=== PATIENT | female | born 2005 | race African-American/Black ===

== ENCOUNTER 2023-03-08 11:44 | Emergency (ER) | payer OTHER ==
--- NOTE | 2023-03-08 11:57 | EDPHYS ---
Physician Documentation [facility] Name: Dalia Page Age: 18 yrs Sex: Female : 2005 Arrival Date: 03/08/2023 Time: 11:44 Bed IW1 Private MD: ED Physician Serge Gao HPI: 03/08 11:54 This 18 yrs old Black Female presents to ER via Ambulatory with complaints of Toothache.jh7 11:54 The patient presents with pain. The problem is located in the lower right wisdome jh7 tooth. Onset: The symptoms/episode began/occurred 3 day(s) ago. Associated signs and symptoms: Pertinent negatives: chills, dysphagia, fever, inability to eat, nausea, redness in area, vomiting. Last dental visit several years ago. 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 - Social history:: Smoking status: Patient denies any tobacco usage or history of. ROS: 11:54 Constitutional: Negative for fever, chills, and weight loss, Eyes: Negative for injury, jh7 pain, redness, and discharge, Neck: Negative for injury, pain, and swelling, Cardiovascular: Negative for chest pain, palpitations, and edema, Respiratory: Negative for shortness of breath, cough, wheezing, and pleuritic chest pain, Abdomen/GI: Negative for abdominal pain, nausea, vomiting, diarrhea, and constipation, MS/Extremity: Negative for injury and deformity, Skin: Negative for injury, rash, and discoloration, Neuro: Negative for headache, weakness, numbness, tingling, and seizure, 11:54 ENT: Positive for dental pain, Negative for difficulty swallowing, difficulty handling secretions, 11:54 All other systems are negative, Exam: 11:54 Constitutional: This is a well developed, well nourished patient who is awake, alert, jh7 and in no acute distress. Head/Face: Normocephalic, atraumatic. Neck: Trachea midline, no thyromegaly or masses palpated, and no cervical lymphadenopathy. Supple, full range of motion without nuchal rigidity, or vertebral point tenderness. No Meningismus. Cardiovascular: Regular rate and rhythm with a normal S1 and S2. No gallops, murmurs, or rubs. Normal PMI, no JVD. No pulse deficits. Respiratory: Lungs have equal breath sounds bilaterally, clear to auscultation and percussion. No rales, rhonchi or wheezes noted. No increased work of breathing, no retractions or nasal flaring. Skin: Warm, dry with normal turgor. Normal color with no rashes, no lesions, and no evidence of cellulitis. MS/ Extremity: Pulses equal, no cyanosis. Neurovascular intact. Full, normal range of motion. Neuro: Awake and alert, GCS 15, oriented to person, place, time, and situation. Normal gait. 11:54 ENT: Dental exam: Right lower wisdom tooth eruption with no surrounding erythema or swelling. The area is tender to palpation., Vital Signs: 11:53 Pulse 75; Resp 16; Temp 98; Pulse Ox 100% ; Weight 93.89 kg; Height 5 ft. 6 in. ; Pain mb9 8/10; 11:56 BP 126 / 78; mb9 11:53 Body Mass Index 33.41 (93.89 kg, 167.64 cm) - Percentile 96.2 % mb9 11:53 Pain Scale: Adult mb9 MDM: 11:49 Patient medically screened. [facility] 11:54 Differential diagnosis: dental caries, gingivitis, dental abscess. Data reviewed: vital [facility] emergency [facility] signs, nurses notes. I considered the following discharge prescriptions or medication management in the emergency department Medications were administered in the Emergency Department. See MAR. Counseling: I had a detailed discussion with the patient and/or guardian regarding the historical points, exam findings, and any diagnostic results supporting the discharge/admit diagnosis, the need for outpatient follow up, a dentist, to return to the emergency department if symptoms worsen or persist or if there are any questions or concerns that arise at home. Administered Medications: 12:01 Drug: Ketorolac IM 60 mg IM once Route: IM; Site: right deltoid; mb9 12:01 Follow up: Response: No adverse reaction mb9 Disposition: 12:18 Co-signature as Attending Physician, Serge Gao MD I reviewed the patient's care rn provided by the Advanced Practice Provider and agree with the diagnosis and treatment plan. Disposition Summary: 03/08/23 11:56 Discharge Ordered Notes: Location: Home [facility] Problem: new [facility] Symptoms: are unchanged [facility] Condition: Stable [facility] Diagnosis - Odontalgia [facility] Followup: [facility] - With: Private Physician - When: 2 - 3 days - Reason: Recheck today's complaints Discharge Instructions: - Discharge Summary Sheet [facility] - Dental Pain [facility] - Preventive Dental Care, Adult [facility] Forms: - Medication Reconciliation Form [facility] - Thank You Letter [facility] - Antibiotic Education [facility] - Patient Portal Instructions [facility] - Leadership Thank You Letter [facility] Prescriptions: - Augmentin 875-125 mg Oral Tablet - take 1 tablet ORAL route every 12 hours for 10 days; 20 tablet; Refills: 0, [facility] Product Selection Permitted - Naprosyn 500 mg Oral Tablet - take 1 tablet ORAL route 2 times per day take with food; 30 tablet; Refills: 0, [facility] Product Selection Permitted Signatures: Serge Gao MD MD rn Hadash, Jennifer, FNP FABRICATOR FOAM RUBBER [facility] Ary Ortiz RN RN mb9
--- NOTE | 2023-03-08 11:57 | ER ---
Nurse's Notes [facility] Name: Dalia Page Age: 18 yrs Sex: Female : 2005 Arrival Date: 03/08/2023 Time: 11:44 Bed IW1 Private MD: Diagnosis: Odontalgia Presentation: 03/08 11:53 Chief complaint: Patient states: "My wisdom teeth have been bothering me for the past 3 mb9 days. It hurts real bad". Coronavirus screen: At this time, the client does not indicate any symptoms associated with coronavirus-19. Ebola Screen: No symptoms or risks identified at this time. Initial Sepsis Screen: Does the patient meet any 2 criteria? No. Patient's initial sepsis screen is negative. Does the patient have a suspected source of infection? No. Patient's initial sepsis screen is negative. Risk Assessment: Do you want to hurt yourself or someone else? Patient reports no desire to harm self or others. Onset of symptoms was March 08, 2023. 11:53 Method Of Arrival: Ambulatory [facility] 11:53 Acuity: FARHAN 4 mb9 Triage Assessment: 11:55 General: Appears in no apparent distress. Behavior is calm, cooperative. Pain: mb9 Complains of pain in wisdom teeth Pain currently is 8 out of 10 on a pain scale. Quality of pain is described as throbbing, Pain began suddenly, Is continuous. EENT: Oral mucosa is moist. Reports pain in teeth. Neuro: Mortensen Agitation-Sedation Scale (RASS): 0 - Alert and Calm Level of Consciousness is awake, alert, obeys commands, Oriented to person, place, time, situation, Appropriate for age. Cardiovascular: Patient's skin is warm and dry. Respiratory: Airway is patent Respiratory effort is even, unlabored, Respiratory pattern is regular, symmetrical. GI: No signs and/or symptoms were reported involving the gastrointestinal system. : No signs and/or symptoms were reported regarding the genitourinary system. Derm: Skin is pink, warm \\T\\ dry. Musculoskeletal: Range of motion: intact in all extremities. 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 - Social history:: Smoking status: Patient denies any tobacco usage or history of. Screenin:56 [facility] ED Fall Risk Assessment (Adult) History of falling in the last 3 months, mb9 including since admission No falls in past 3 months (0 pts) Confusion or Disorientation No (0 pts) Intoxicated or Sedated No (0 pts) Impaired Gait No (0 pts) Mobility Assist Device Used No (0 pt) Altered Elimination No (0 pt) Score/Fall Risk Level 0 - 2 = Low Risk Oriented to surroundings, Maintained a safe environment, Educated pt \\T\\ family on fall prevention, incl call for assistance when getting out of bed. Abuse screen: Denies threats or abuse. Nutritional screening: No deficits noted. Tuberculosis screening: No symptoms or risk factors identified. Assessment: 11:56 Reassessment: see triage assessment. mb9 Vital Signs: 11:53 Pulse 75; Resp 16; Temp 98; Pulse Ox 100% ; Weight 93.89 kg; Height 5 ft. 6 in. ; Pain mb9 8/10; 11:56 BP 126 / 78; mb9 11:53 Body Mass Index 33.41 (93.89 kg, 167.64 cm) - Percentile 96.2 % mb9 11:53 Pain Scale: Adult mb9 ED Course: 11:47 Patient arrived in ED. mg5 11:49 Marielos Busch FNP is [facility]. jh7 11:49 Serge Gao MD is Attending Physician. 7 11:52 Ary Ortiz, ARTIS is Primary Nurse. mb9 11:54 Triage completed. mb9 11:54 Arm band placed on. mb9 11:56 Adult w/ patient. Client placed on continuous cardiac and pulse oximetry monitoring. mb9 NIBP monitoring applied. 11:56 No provider procedures requiring assistance completed. Patient did not have IV access mb9 during this emergency room visit. Administered Medications: 12:01 Drug: Ketorolac IM 60 mg IM once Route: IM; Site: right deltoid; mb9 12:01 Follow up: Response: No adverse reaction mb9 Medication: 11:56 VIS not applicable for this client. mb9 Outcome: 11:56 Discharge ordered by . jh7 12:01 Discharged to home ambulatory, telly 12:01 Condition: stable 12:01 Discharge instructions given to patient, Instructed on discharge instructions, follow up and referral plans. Demonstrated understanding of instructions, follow-up care, medications, Prescriptions given X 2, 12:02 Patient left the ED. mb9 Signatures: Marielos Busch FNP FNP jh7 Ary Ortiz RN RN mb9 Aditi Gr mg5
[2023-03-08 12:07] VITALS: TEMP 98; O2SAT 100
[2023-03-08 12:08] VITALS: BP 126/78
[2023-03-08] MEDS ORDERED: KETOROLAC 30 MG/ML INJ ONE (12:10)
== END 2023-03-08 12:02 | disposition home or self-care (01) ==
LOC: ER 11:44
DX: K08.89 Other specified disorders of teeth and supporting structures (principal)
CPT/HCPCS: 96372; 99284

== ENCOUNTER 2024-05-30 16:00 | Emergency (ER) | payer SELFPAY ==
[2024-05-30 17:01] LABS: Specific Gravity > 1.030 (1.005-1.030); Transitional Epithelial <5 /HPF (None Seen); Urine Bacteria <20 /HPF (<20); Urine Bilirubin NEGATIVE (Negative); Urine Blood Negative (Negative); Urine Clarity Turbid (Clear); Urine Color Yellow (Yellow); Urine Culture Reflex Order NOT NEEDED; Urine Glucose NEGATIVE (Negative); Urine Ketones TRACE (Negative); Urine Microscopic Reflex YN ORDER UMIC; Urine Mucus 4+ /HPF (None Seen); Urine Nitrite NEGATIVE (Negative); Urine Protein 1+ (Negative); Urine RBC <5 /HPF (None Seen); Urine Urobilinogen 2+ (Normal); Urine WBC <5 /HPF (<5); Urine pH 6.5 (5.0-7.0)
[2024-05-30 17:02] LABS: Specific Gravity > 1.030 (1.005-1.030)
--- NOTE | 2024-05-30 17:38 | RAD REPORT ---
Exam:Forearm Left Clinical history: Left forearm pain Findings: No fracture seen
--- NOTE | 2024-05-30 17:57 | EDPHYS ---
Physician Documentation [facility] Name: Dalia Page Age: 19 yrs Sex: Female : 2005 Arrival Date: 05/30/2024 Time: 16:00 Bed IW1 Private MD: ED Physician Serge Gao HPI: 05/30 20:59 This 19 yrs old Black Female presents to ER via Ambulatory with complaints of Arm kb Problem - bump, Urinary Problem. 20:59 Patient is a 19-year-old female who presents for vaginal discharge and having the urge kb to urinate but does not urinate very much that started about a week ago. Denies dysuria or fever. Also reports a lump to her left forearm that has been there for over a month and she wanted to find out what that was.. Historical: - Allergies: 16:23 No Known Allergies; ko1 - Home Meds: 16:23 None [Active]; ko1 - PMHx: 16:23 None; ko1 - PSHx: 16:23 None; ko1 - Immunization history:: Adult Immunizations up to date. - Infectious Disease History:: Denies. - Social history:: Smoking status: Patient denies any tobacco usage or history of. ROS: 20:57 Constitutional: As per HPI kb Exam: 20:57 Constitutional: This is a well developed, well nourished patient who is awake, alert, kb and in no acute distress. Head/Face: Normocephalic, atraumatic. ENT: Moist Mucous membranes Cardiovascular: Regular rate Respiratory: Respirations even and unlabored. No increased work of breathing. Talking in full sentences Abdomen/GI: Soft, non-tender. No distention Skin: Warm, dry with normal turgor. Normal color. Neuro: Awake and alert, GCS 15, oriented to person, place, time, and situation. 20:57 Musculoskeletal/extremity: Extremities: grossly normal except: noted in the dorsal aspect of left forearm: mass under skin, ROM: intact in all extremities, Circulation is intact in all extremities. Sensation intact. Vital Signs: 16:21 BP 107 / 62; Pulse 84; Resp 16; Temp 97.1; Pulse Ox 100% ; ko1 MDM: 16:07 Medical Screening Exam initiated kb 18:23 ED course: Pt elected to leave from lobby prior to results.. kb 20:58 Differential diagnosis: foreign body, cyst, BV, gonorrhea, chlamydia, UTI, trichomonas, kb yeast infection. Data reviewed: vital signs, nurses notes. 05/30 16:20 Order name: Wet Prep; Complete Time: 17:16 kb 05/30 16:20 Order name: GC (Rylan/Chl) Probe VAGINAL (Do not order if pt is under 13, order Culture kb instead) 05/30 16:20 Order name: Test, Urine; Complete Time: 17:03 kb 05/30 16:20 Order name: Urinalysis w/ reflexes; Complete Time: 17:03 kb 05/30 16:20 Order name: Forearm Left XRAY; Complete Time: 17:45 kb Administered Medications: No medications were administered Disposition Summary: 05/30/24 17:57 Discharge Ordered Notes: Location: Home kb Condition: Stable kb Diagnosis - Bacterial vaginosis kb Followup: kb - With: Emergency Department - When: As needed - Reason: Worsening of condition Followup: kb - With: Private Physician - When: 2 - 3 days - Reason: Recheck today's complaints, Continuance of care, Re-evaluation by your physician Discharge Instructions: - Discharge Summary Sheet kb - Bacterial Vaginosis, [id number] kb Forms: - Medication Reconciliation Form kb - Antibiotic Education kb - Prescription Opioid Use kb - Patient Portal Instructions kb - Leadership Thank You Letter kb Prescriptions: - Cleocin 2 % Vaginal Cream - insert 5 grams VAGINAL route At bedtime for 7 days; 45 gram; Refills: 0, kb Product Selection Permitted Addendum: 06/06/2024 06:58 Co-signature as Attending Physician, Serge Gao MD I reviewed the patient's care r n provided by the Advanced Practice Provider and agree with the diagnosis and treatment plan. Signatures: Dispatcher [employer] Florence Guerra, VIROLOGY TEACHER-C VIROLOGY TEACHER-Serge Rich MD MD rn Oliver, Kathy, RN RN ko1 Corrections: (The following items were deleted from the chart) 05/30 20:58 20:57 Musculoskeletal/extremity: Extremities: grossly normal except: ROM: intact in all kb extremities, kb
--- NOTE | 2024-05-30 17:57 | ER ---
Nurse's Notes [facility] Name: Dalia Page Age: 19 yrs Sex: Female : 2005 Arrival Date: 05/30/2024 Time: 16:00 Bed IW1 Private MD: Diagnosis: Bacterial vaginosis Presentation: 05/30 16:21 Chief complaint: Patient states: I feel like I need to pee but I dont, I have a white ko1 discharge also. Coronavirus screen: At this time, the client does not indicate any symptoms associated with coronavirus-19. Ebola Screen: No symptoms or risks identified at this time. Initial Sepsis Screen: Does the patient meet any 2 criteria? No. Patient's initial sepsis screen is negative. Does the patient have a suspected source of infection? No. Patient's initial sepsis screen is negative. Risk Assessment: Do you want to hurt yourself or someone else? Patient reports no desire to harm self or others. Onset of symptoms is unknown. 16:21 Method Of Arrival: Ambulatory ko1 16:21 Acuity: FARHAN 4 ko1 Triage Assessment: 16:23 General: Appears in no apparent distress. Behavior is calm, cooperative, appropriate ko1 for age. Pain: Denies pain. Historical: - Allergies: 16:23 No Known Allergies; ko1 - Home Meds: 16:23 None [Active]; ko1 - PMHx: 16:23 None; ko1 - PSHx: 16:23 None; ko1 - Immunization history:: Adult Immunizations up to date. - Infectious Disease History:: Denies. - Social history:: Smoking status: Patient denies any tobacco usage or history of. Screenin:16 [facility] ED Fall Risk Assessment (Adult) History of falling in the last 3 months, ko1 including since admission No falls in past 3 months (0 pts) Confusion or Disorientation No (0 pts) Intoxicated or Sedated No (0 pts) Impaired Gait No (0 pts) Mobility Assist Device Used No (0 pt) Altered Elimination No (0 pt) Score/Fall Risk Level 0 - 2 = Low Risk Oriented to surroundings, Maintained a safe environment. Abuse screen: Denies threats or abuse. Denies injuries from another. Nutritional screening: No deficits noted. Tuberculosis screening: No symptoms or risk factors identified. Vital Signs: 16:21 BP 107 / 62; Pulse 84; Resp 16; Temp 97.1; Pulse Ox 100% ; ko1 ED Course: 16:02 Patient arrived in ED. im 16:06 Florence Linares FNP-C [facility] kb 16:07 Serge Gao MD is Attending Physician. kb 16:22 Triage completed. ko1 16:23 Arm band placed on right wrist. Patient placed in waiting room, Patient notified of ko1 wait time. 17:07 Forearm Left XRAY In Process Unspecified. EDMS 18:16 Patient has correct armband on for positive identification. Provided Education on: labs.ko1 18:16 No provider procedures requiring assistance completed. Patient did not have IV access ko1 during this emergency room visit. Administered Medications: No medications were administered Medication: 18:16 VIS not applicable for this client. ko1 Outcome: 17:57 Discharge ordered by . kb 18:27 Discharged to home ld1 18:27 Condition: unchanged 18:27 Instructed on discharge instructions, 18:27 Patient left the ED. ld1 Signatures: Dispatcher [employer] EDMS Florence Lniares FNP-C FNP-Ckb Sims, Lauren, RN RN ld1 Randee Graham RN RN ko1 Lizy Vicente im
[2024-05-31 01:09] VITALS: BP 107/62; TEMP 97.1; O2SAT 100
[2024-06-03 22:47] LABS: C.trachomatis RNA,TMA Detected (Not Detected); N.gonorrhoeae RNA,TMA Not Detected (Not Detected)
== END 2024-05-30 18:27 | disposition home or self-care (01) ==
LOC: ER 16:00
DX: N76.0 Acute vaginitis (principal)
CPT/HCPCS: 81001; 81025; 87210; 87490; 87590; 99282